=== PATIENT | male | born 1965 | race Caucasian/White ===

== ENCOUNTER 2019-05-17 16:05 | Emergency (ER) | payer OTHER ==
[2019-05-17 16:39] LABS: ABSOLUTE NEUTROPHIL COUNT 7.99; BASO % 0.4 % (0-6); EOS % 0.2 % (0-6); GRAN % 71.2 % (47-80); HEMATOCRIT 48.4 % (42.0-52.0); HEMOGLOBIN 16.4 gm/dl (14.0-18.0); LYMPH % 23.4 % (16-45); MEAN CORPUSCULAR HEMOGLOBIN 30.8 pg (27-33); MEAN CORPUSCULAR HGB CONC 33.9 g/dl (32-36); MEAN PLATELET VOLUME 9.6 fl (7.4-10.4); MONO % 4.8 % (0-9); PLATELET COUNT 381 K/uL (130-400); RED BLOOD COUNT 5.32 M/uL (4.40-5.70); RED CELL DISTRIBUTION WIDTH 13.4 % (11.5-14.5); WHITE BLOOD COUNT W/O DIFF 11.2 K/uL (4.2-12.2)
[2019-05-17 16:42] LABS: AMPHETAMINE SCREEN URINE NOT DETECTED; BARBITURATE SCREEN URINE NOT DETECTED; BENZODIAZEPINE SCREEN URINE NOT DETECTED; COCAINE SCREEN URINE NOT DETECTED; METHADONE SCREEN URINE NOT DETECTED; METHAMPHETAMINE SCREEN NOT DETECTED; OPIATE SCREEN URINE NOT DETECTED; OXYCODONE SCREEN URINE NOT DETECTED; PHENCYCLIDINE SCREEN URINE NOT DETECTED; PROPOXYPHENE SCREEN URINE NOT DETECTED; THC SCREEN URINE NOT DETECTED; TRICYCLIC ANTIDEPRESSANT SCRN NOT DETECTED
[2019-05-17 16:45] LABS: BLOOD UREA NITROGEN 23 mg/dL (6-20); CREATININE 1.2 mg/dL (0.7-1.2); EST GLOMERULAR FILTRATION RATE > 60 mL/min
[2019-05-17 16:46] LABS: TOTAL PROTEIN 7.3 g/dL (6.6-8.7)
[2019-05-17 16:47] LABS: ALCOHOL 0.266 g/dL (0-0.010)
[2019-05-17] MEDS ORDERED: LORAZEPAM 2 MG/ML VIAL IV ONE (16:47)
[2019-05-17 16:48] LABS: GLUCOSE,RANDOM 97 mg/dL (74-109)
[2019-05-17 16:51] LABS: ALB/GLOB RATIO 1.8 (1.1-1.8); ALBUMIN 4.7 g/dL (4.0-5.0); ALKALINE PHOSPHATASE 93 U/L (40-129); ALT/SGPT 31 U/L (<41); AST/SGOT 27 U/L (10.0-50.0)
[2019-05-17] MEDS ORDERED: MVI, ADULT NO.4 WITH VIT K 10 ML, THIAMINE HCL IV 100 MG in 0.9 % SODIUM CHLORIDE 1000M... IV SCH ×3 (17:00)
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
[2019-05-17] MEDS ORDERED: KETOROLAC 30 MG/ML VIAL IVP ONE (19:08)
--- NOTE | 2019-05-17 19:22 | Emergency Department Record ---
History of Present Illness - General Chief Complaint: Alcohol Intoxication Stated Complaint: DRUNK Time Seen by Provider: 05/17/19 16:26 Source: Patient Mode of Arrival: EMS Limitations: No limitations - History of Present Illness Associated Symptoms: Denies other symptoms Treatments Prior to Arrival: None - [place] Coma Scale Eye Response: (4) Open spontaneously Motor Response: (6) Obeys commands Verbal Response: (5) Oriented [place] Total: 15 - Related Data Home Medications Medication Instructions Recorded Confirmed Last Taken Fluoxetine HCl 20 mg PO DAILY 05/17/19 05/17/19 Unknown Metoprolol Succinate 50 mg PO DAILY 05/17/19 05/17/19 Unknown Omeprazole 40 mg PO DAILY 05/17/19 05/17/19 Unknown Sildenafil Citrate [Viagra] 100 mg PO ASDIR 05/17/19 05/17/19 Unknown Tramadol HCl [Ultram] 50 mg PO Q8H 05/17/19 05/17/19 Unknown Valsartan/Hydrochlorothiazide 1 each PO DAILY 05/17/19 05/17/19 Unknown [Diovan Hct 80-12.5 mg Tablet] Allergies Allergy/AdvReac Type Severity Reaction Status Date / Time No Known Drug Allergies Allergy Verified 05/17/19 16:19 Travel Screening - Travel/Exposure Within Last 30 Days Have you traveled within the last 30 days?: No - Travel/Exposure Within Last Year Have you traveled outside the [place] in the last year?: No - Additonal Travel Details Have you been exposed to anyone with a communicable illness?: No - Travel Symptoms Symptom Screening: None Review of Systems Constitutional: Reports: As per HPI. Denies: Chills, Fever, Malaise, Night sweats, Weakness, Weight change Eyes: Reports: As per HPI. Denies: Eye discharge, Eye pain, Photophobia, Vision change ENT: Reports: As per HPI. Denies: Congestion, Dental pain, Ear pain, Epistaxis, Hearing loss, Throat pain Respiratory: Reports: As per HPI. Denies: Cough, Dyspnea, Hemoptysis, Stridor, Wheezes Cardiovascular: Reports: As per HPI. Denies: Arrhythmia, Chest pain, Dyspnea on exertion, Edema, Murmurs, Orthopnea, Palpitations, Paroxysmal nocturnal dyspnea, Rheumatic Fever, Syncope Endocrine: Reports: As per HPI. Denies: Fatigue, Heat or cold intolerance, Dinesh ydipsia, Polyuria Gastrointestinal: Reports: As per HPI. Denies: Abdominal pain, Constipation, Diarrhea, Hematemesis, Hematochezia, Melena, Nausea, Vomiting Genitourinary: Reports: As per HPI. Denies: Dysuria, Frequency, Hematuria, Incontinence, Retention, Testicular pain, Testicular mass, Urgency Musculoskeletal: Reports: As per HPI. Denies: Arthralgia, Back pain, Gout, Joint swelling, Myalgia, Neck pain Skin: Reports: As per HPI. Denies: Bruising, Change in color, Change in hair/nails, Lesions, Pruritus, Rash Neurological: Reports: As per HPI. Denies: Abnormal gait, Confusion, Headache, Numbness, Paresthesias, Seizure, Tingling, Tremors, Vertigo, Weakness Psychiatric: Reports: As per HPI. Denies: Anxiety, Auditory hallucinations, De pression, Homicidal thoughts, Suicidal thoughts, Visual hallucinations Hematological/Lymphatic: Reports: As per HPI. Denies: Anemia, Blood Clots, Easy bleeding, Easy bruising, Swollen glands Past Medical History - SOCIAL HISTORY Smoking Status: Never smoker Alcohol Use: Heavy Drug Use: None - RESPIRATORY Hx Respiratory Disorders: No - CARDIOVASCULAR Hx Cardio Disorders: Yes Hx Hypertension: Yes - NEURO Hx Neuro Disorders: Yes Hx Headaches: Yes - GI Hx GI Disorders: No - Hx Genitourinary Disorders: No - ENDOCRINE Hx Endocrine Disorders: No - MUSCULOSKELETAL Hx Musculoskeletal Disorders: No - PSYCH Hx Psych Problems: Yes Hx Anxiety: Yes Hx Depression: Yes - HEMATOLOGY/ONCOLOGY Hx Hematology/Oncology Disorders: No Family Medical History Any Significant Family History?: No Physical Exam - General Limitations: No limitations Course Vital Signs 05/17/19 05/17/19 05/17/19 16:13 17:10 17:25 Pulse Rate 116 H Pulse Rate [ 108 H 119 H Pulse Ox Probe] Respiratory 20 20 18 Rate Blood Pressure 124/97 Blood Pressure 144/96 129/96 [Right Arm] Pulse Ox 96 98 05/17/19 17:55 Pulse Rate Pulse Rate [ 108 H Pulse Ox Probe] Respiratory 16 Rate Blood Pressure Blood Pressure 149/94 [Right Arm] Pulse Ox 98 - Reevaluation(s) Reevaluation #1: 05/17/19 19:20 Assumed care from previous provider. Patient sitting upright, rocking back in forth, complaining of "pain all over". Patient was assesses, no focal deficits noted on examination, patient is out of restraints with nursing staff at the bedside. Patient is tearful on examination, borderline agitated. Toradol ordered by previous provider, Zyprexa PO ordered as well for agitation. Reevaluation #2: 05/17/19 21:52 Patient is sleeping in Room #5, resting comfortably following Toradol and Zyprexa PO. Pain symptoms appear greatly improved. Reevaluation #3: 05/17/19 23:37 repeat Alcohol is 0.110 drawn at 23:10. Will reassess in 45 minutes as patient should be below the legal limit at that time for possible discharge home. Patient has not expressed any suicidal or homicidal thoughts while in the ED. Reevaluation #4: 05/18/19 00:44 Patient was reassessed Ambulating around the ED, denies HI/SI on re-examination. Patient appears stable for discharge at this time. Medical Decision Making - Lab Data Result diagrams: 05/17/19 16:30 05/17/19 16:30 Lab Results 05/17/19 05/17/19 05/17/19 Range/Units 16:30 16:30 16:30 WBC 11.2 (4.2-12.2) K/uL RBC 5.32 (4.40-5.70) M/uL Hgb 16.4 (14.0-18.0) gm/dl Hct 48.4 (42.0-52.0) % MCV 91.0 (81-97) fl MCH 30.8 (27-33) pg MCHC 33.9 (32-36) g/dl RDW 13.4 (11.5-14.5) % Plt Count 381 (130-400) K/uL MPV 9.6 (7.4-10.4) fl Gran % 71.2 (47-80) % Lymphocytes % 23.4 (16-45) % Monocytes % 4.8 (0-9) % Eosinophils % 0.2 (0-6) % Basophils % 0.4 (0-6) % Absolute Neutrophils 7.99 Sodium 142 (136-145) mmol/L Potassium 3.7 (3.4-4.5) mmol/L Chloride 97 L (98-107) mmol/L Carbon Dioxide 17.0 L (22-29) mmol/L Anion Gap 28.0 H (7-16) BUN 23 H (6-20) mg/dL Creatinine 1.2 (0.7-1.2) mg/dL Estimated GFR > 60 mL/min Random Glucose 97 (74-109) mg/dL Calcium 9.1 (8.6-10.0) mg/dL Total Bilirubin 0.50 (0.2-1.0) mg/dL AST 27 (10.0-50.0) U/L ALT 31 (<41) U/L Alkaline Phosphatase 93 (40-129) U/L Total Protein 7.3 (6.6-8.7) g/dL Albumin 4.7 (4.0-5.0) g/dL Globulin 2.6 (1.4-4.8) gm/dL Albumin/Globulin Ratio 1.8 (1.1-1.8) Urine Opiates Screen Not detected Ur Oxycodone Screen Not detected Urine Methadone Screen Not detected Ur Propoxyphene Screen Not detected Ur Barbituates Screen Not detected Ur Tricyclics Screen Not detected Ur Phencyclidine Scrn Not detected Ur Amphetamine Screen Not detected U Methamphetamines Scrn Not detected U Benzodiazepines Scrn Not detected Urine Cocaine Screen Not detected Urine Cannabis Screen Not detected Ethyl Alcohol 0.266 H (0-0.010) g/dL Disposition Disposition: Discharge Clinical Impression: Agitation states as acute reaction to exceptional (gross) stress, Fibromyalgia syndrome Alcohol intoxication Qualifiers: Complication of substance-induced condition: with unspecified complication Qualified Code(s): F10.929 - Alcohol use, unspecified with intoxication, u nspecified Disposition: Home, Self-Care Condition: (2) Stable Instructions: Alcohol Intoxication (ED) Additional Instructions: Return to ED if your symptoms worsen or if you have any concerns. Do not drink alcohol to excess. Follow-up with your family doctor in 3-5 days as directed. Forms: Patient Portal Access Time of Disposition: 00:44 Quality - Quality Measures Quality Measures: N/A - Blood Pressure Screening Does Patient Have Any of the Following: No Blood Pressure Classification: Hypertensive Reading Systolic Measurement: 124 Diastolic Measurement: 97 Screening for High Blood Pressure: < First Hypertensive BP, F/U Documented > [ G8950] First Hypertensive Follow-up Interventions: Referral to alternative/primary care provider.
[2019-05-17] MEDS ORDERED: AL HYDROX/MAG HYDROX 30ML UD PO ONE (20:43)
[2019-05-18] MEDS ORDERED: OLANZAPINE 5MG TABLET PO SCH (10:00)
== END 2019-05-18 00:53 | disposition home or self-care (01) ==
LOC: ER 16:05
DX: F10.129 Alcohol abuse with intoxication, unspecified (principal); Y90.8 Blood alcohol level of 240 mg/100 ml or more; F43.0 Acute stress reaction; M79.7 Fibromyalgia; I10 Essential (primary) hypertension
CPT/HCPCS: 99285 ×2; 96365; 96375; 85025; 80053; 80305; G0480; J1885; J2060; 80320; J3411; J7030